=== PATIENT | female | born 1950 | race Native Hawaiian/Other Pacific Islander ===

== ENCOUNTER → 2016-10-16 | Outpatient (CLI) | payer MEDICARE ==
--- NOTE | 2016-10-16 13:49 | MM ---
Reason for exam: clinical finding. Last mammogram was performed 2 years and 6 months ago. History: Patient is postmenopausal. Took estrogen for 1 year 10 months. Physical Findings: Nurse did not find any significant physical abnormalities on exam. MG 3D Diag Mammo W/Cad BUBBA Bilateral CC and MLO view(s) were taken. Prior study comparison: April 28, 2014, bilateral MG screening mammo w CAD. December 29, 2009, bilateral digital screening mammogram. The breast tissue is heterogeneously dense. This may lower the sensitivity of mammography. Asymmetric density superior left breast does not persist on additional views. These results were verbally communicated with the patient and result sheet given to the patient on 10/16/16. ASSESSMENT: Negative, BI-RAD 1 RECOMMENDATION: Routine screening mammogram of both breasts in 1 year. Manage on a clinical basis with regard to inferior left breast pain.
== END | disposition home or self-care (01) ==
LOC: RADMAMWWP 10:14
PROVIDERS: ATTEND Family Medicine
DX: N64.4 Mastodynia (principal)
CPT/HCPCS: G0204; G0279

== ENCOUNTER → 2017-06-25 | Outpatient (CLI) | payer MEDICARE ==
--- NOTE | 2017-06-25 14:37 | CT ---
EXAMINATION TYPE: CT chest w con DATE OF EXAM: 06/25/2017 COMPARISON: Chest x-ray from one week ago. HISTORY: Moderate persistent asthma per order. CT DLP: 334.90 mGycm. Automated Exposure Control for Dose Reduction was Utilized. TECHNIQUE: CT scan of the thorax is performed following with IV Contrast, patient injected with 100 ml mL of Isovue 300. FINDINGS: LUNGS: In the posterior aspect right upper lobe there is semisolid nodular consolidation abutting fis sure measuring 11 x 7 mm axial image 10 with some adjacent groundglass opacity. There is slight thick ening of right major fissure. There is no pleural effusion or pneumothorax seen bilaterally. The tra cheobronchial tree is patent. Linear scarring lingula is present. Right lung volume is felt normal an d symmetric to opposite left side. MEDIASTINUM: There are no greater than 1 cm hilar or mediastinal lymph nodes. No cardiomegaly or pe ricardial effusion is seen. Corresponding to chest x-ray abnormality causing curvilinear density the re is anomalous vessel or venous return from the right lung to the suprahepatic IVC. OTHER: There is mild to moderate multilevel disc space narrowing and spurring with multilevel vacuum disc phenomenon in the mid thoracic spine. IMPRESSION: 1. Possible resolving or mild acute infiltrate posterior aspect right upper lobe. Consider short-term follow-up CT to document resolution due to semisolid appearance. 2. Accounting for chest x-ray abnormality there is prominent vessel or suspected anomalous vein drain ing into the suprahepatic IVC consistent with partial anomalous pulmonary venous return.
== END | disposition home or self-care (01) ==
LOC: RADCTMAIN 11:28
PROVIDERS: ATTEND Internal Medicine Critical Care Medicine
DX: J45.41 Moderate persistent asthma with (acute) exacerbation (principal); Z88.2 Allergy status to sulfonamides; Z91.041 Radiographic dye allergy status
CPT/HCPCS: 82565; 84520; 71260; 36415; Q9967

== ENCOUNTER → 2019-11-16 | Outpatient (CLI) | payer MEDICARE ==
--- NOTE | 2019-11-18 09:17 | MM ---
Reason for exam: screening (asymptomatic). Last mammogram was performed 3 years and 1 month ago. History: Patient is postmenopausal. Took hormonal contraceptives for 5 months. Took estrogen for 1 year 10 months. Physical Findings: A clinical breast exam by your physician is recommended on an annual basis and results should be correlated with mammographic findings. MG 3D Screening Mammo W/Cad Bilateral CC and MLO view(s) were taken. Prior study comparison: October 16, 2016, bilateral MG 3d diag mammo w/cad BUBBA. April 28, 2014, bilateral MG screening mammo w CAD. The breast tissue is heterogeneously dense. This may lower the sensitivity of mammography. Inferior anterior nodularity on the left persists on 3D. ASSESSMENT: Incomplete: need additional imaging evaluation, BI-RAD 0 RECOMMENDATION: Special view mammogram of the left breast. (3D) If lesion persists on supplemental views, image directed ultrasound is recommended. [facility] will attempt to contact patient to return for supplemental views and ultrasound if indicated.
== END | disposition home or self-care (01) ==
LOC: RADMAMWWP 13:50
PROVIDERS: ATTEND Family Medicine
DX: Z12.31 Encounter for screening mammogram for malignant neoplasm of breast (principal)
CPT/HCPCS: 77063; 77067

== ENCOUNTER → 2019-11-25 | Outpatient (CLI) | payer MEDICARE ==
--- NOTE | 2019-11-25 09:02 | MM ---
Reason for exam: additional evaluation requested from abnormal screening. Last mammogram was performed less than 1 month ago. History: Patient is postmenopausal. Took hormonal contraceptives for 5 months. Took estrogen for 1 year 10 months. Physical Findings: Nurse did not find any significant physical abnormalities on exam. MG 3D Work Up W/Cad LT ML and spot compression MLO view(s) were taken of the left breast. Prior study comparison: November 16, 2019, bilateral MG 3d screening mammo w/cad. October 16, 2016, bilateral MG 3d diag mammo w/cad BUBBA. The breast tissue is heterogeneously dense. This may lower the sensitivity of mammography. Benign appearing calcifications in the left breast. These results were verbally communicated with the patient and result sheet given to the patient on 11/25/19. ASSESSMENT: Probably benign, BI-RAD 3 RECOMMENDATION: Follow-up diagnostic mammogram of the left breast in 6 months.
== END | disposition home or self-care (01) ==
LOC: RADMAMWWP 08:09
PROVIDERS: ATTEND Family Medicine
DX: R92.8 Other abnormal and inconclusive findings on diagnostic imaging of breast (principal)
CPT/HCPCS: 77065; G0279; 77061

== ENCOUNTER → 2022-09-09 | Outpatient (CLI) | payer MEDICARE ==
--- NOTE | 2022-09-10 20:14 | MM ---
Reason for Exam: Screening (asymptomatic). Last mammogram was performed 2 year(s) and 10 month(s) ago. Patient History: Menarche at age 14. First Full-Term at age 21. Postmenopausal. Estrogen for 1 year, 10 months, until age 54. Hormonal Contraceptives for 5 months. Risk Values: Adrianne 5 year model risk: 1.4%. NCI Lifetime model risk: 4.0%. Prior Study Comparison: 10/16/2016 Bilateral Diagnostic Mammogram, [facility]. 11/16/2019 Bilateral Screening Mammogram, [facility]. 11/25/2019 Left Diagnostic Mammogram, [facility]. Tissue Density: The breast tissue is heterogeneously dense. This may lower the sensitivity of mammography. Findings: Analyzed By CAD. Asymmetric density inferior left MLO view and a middle depth is more defined and incompletely disperses on 3-D images. Findings may represent superimposition shadow but further evaluation is recommended. Otherwise, there is no suspicious group of microcalcifications or new suspicious mass in either breast. Overall Assessment: Incomplete: need additional imaging evaluation, BI-RAD 0 Management: Special View Mammogram of the left breast. Including spot 3-D MLO and 3 lateral views. Targeted left breast ultrasound if any persisting abnormality. [facility] will attempt to contact patient to return for supplemental views and ultrasound if indicated. Patient should continue monthly self-breast exams. A clinical breast exam by your physician is recommended on an annual basis. This exam should not preclude additional follow-up of suspicious palpable abnormalities. Note on Adrianne scores and lifetime risk: 1. A Adrianne score greater than 3% is considered moderate risk. If this is the case, consider specialist referral to assess eligibility for a risk reducing agent. 2. If overall lifetime risk for the development of breast cancer is 20% or higher, the patient may qualify for future screening with alternating mammogram and breast MRI. Electronically signed and approved by: Jimena Garay M.D. Radiologist
== END | disposition home or self-care (01) ==
LOC: RADMAMWWP 11:50
PROVIDERS: ATTEND Family Medicine
DX: Z12.31 Encounter for screening mammogram for malignant neoplasm of breast (principal); Z78.0 Asymptomatic menopausal state
CPT/HCPCS: 77063; 77067

== ENCOUNTER → 2024-06-09 | Outpatient (CLI) | payer MEDICARE ==
--- NOTE | 2024-06-09 17:24 | MM ---
Reason for Exam: Screening (asymptomatic). Last mammogram was performed 1 year(s) and 9 month(s) ago. Patient History: Menarche at age 14. First Full-Term at age 21. Postmenopausal. Estrogen for 1 year, 10 months, until age 54. Hormonal Contraceptives for 5 months. Risk Values: Adrianne 5 year model risk: 1.4%. NCI Lifetime model risk: 3.6%. Prior Study Comparison: 11/16/2019 Bilateral Screening Mammogram, [facility]. 11/25/2019 Left Diagnostic Mammogram, [facility]. 09/09/2022 Bilateral MG 3D screening mammo w/cad, [facility]. Tissue Density: The breasts are heterogeneously dense, which may obscure small masses. Findings: Analyzed By CAD. Unchanged global asymmetry left upper outer quadrant. There is no suspicious group of microcalcifications or new suspicious mass in either breast. Overall Assessment: Benign, BI-RAD 2 Management: Screening Mammogram of both breasts in 1 year. Patient should continue monthly self-breast exams. A clinical breast exam by your physician is recommended on an annual basis. This exam should not preclude additional follow-up of suspicious palpable abnormalities. Note on Adrianne scores and lifetime risk: 1. A Adrianne score greater than 3% is considered moderate risk. If this is the case, consider specialist referral to assess eligibility for a risk reducing agent. 2. If overall lifetime risk for the development of breast cancer is 20% or higher, the patient may qualify for future screening with alternating mammogram and breast MRI. [facility], , 06/09/2024 5:21 PM. Electronically signed and approved by: Jimena Garay M.D. Radiologist
== END | disposition home or self-care (01) ==
LOC: RADMAMWWP 12:04
PROVIDERS: ATTEND Family Medicine
DX: Z12.31 Encounter for screening mammogram for malignant neoplasm of breast (principal); R92.333 Mammographic heterogeneous density, bilateral breasts; Z78.0 Asymptomatic menopausal state
CPT/HCPCS: 77063; 77067